=== PATIENT | female | born 1965 | race African-American/Black ===

== ENCOUNTER 2021-07-05 12:01 | Emergency (ER) | payer BC ==
--- NOTE | 2021-07-05 12:40 | RAD REPORT ---
EXAM DESCRIPTION: CT - CTHCSPWOC - 07/05/2021 12:15 pm CLINICAL HISTORY: Trauma, head and neck injury. Trauma, fall, laceration COMPARISON: No comparisons TECHNIQUE: Axial 5 mm thick images of the head were obtained. Axial 2 mm thick images of the cervical spine were obtained with sagittal and coronal reconstruction images generated and reviewed. All CT scans are performed using dose optimization technique as appropriate and may include automated exposure control or mA/KV adjustment according to patient size. FINDINGS: CT HEAD WITHOUT CONTRAST: No acute hemorrhage, hydrocephalus or extra-axial collection is identified.No areas of brain edema or midline shift. The paranasal sinuses and mastoids are clear.The calvarium is intact. Small right frontal scalp hemat eduard. Suspected nasal bone fracture. CT CERVICAL SPINE WITHOUT CONTRAST: No fracture or subluxation.No prevertebral soft tissues swelling is identified. IMPRESSION: No acute intracranial or cervical spine findings.
--- NOTE | 2021-07-05 12:47 | RAD REPORT ---
EXAM DESCRIPTION: CT - Facial Bones W/ Mpr - 07/05/2021 12:15 pm CLINICAL HISTORY: Facial injury status post fall. Facial pain COMPARISON: None TECHNIQUE: Computed axial tomography of the face was obtained. Coronal and sagittal reconstruction w as performed. All CT scans are performed using dose optimization technique as appropriate and may include automated exposure control or mA/KV adjustment according to patient size. FINDINGS: A comminuted depressed nasal bone fracture. Fractures involve the nasal septum. Anterior nasal septum displaced to the left. Soft tissue laceration right lateral supraorbital region. A TMJ dislocation is not noted. The globes are intact. Fluid within the sinuses is not seen. IMPRESSION: Comminuted nasal bone fracture Fractures involve the nasal septum
--- NOTE | 2021-07-05 12:51 | RAD REPORT ---
EXAM DESCRIPTION: RAD - Wrist Right 3 View - 07/05/2021 12:35 pm CLINICAL HISTORY: Right wrist pain status post injury FINDINGS: No fracture or dislocation is seen. If the patient continues to have symptoms to suggest a n occult fracture then a followup plain film series in 7 days would be recommended.
[2021-07-05] MEDS ORDERED: ONDANSETRON 4 MG (ODT) TAB ONE (13:39)
[2021-07-05] MEDS ORDERED: HYDROCODONE/APAP 7.5/325 MG TAB ONE (13:39)
[2021-07-05] MEDS ORDERED: DERMABOND SKIN ADHESIVE TOP ONE (14:17)
--- NOTE | 2021-07-05 14:57 | EDPHYS ---
Physician Documentation [facility] Name: Janet Castillo Age: 56 yrs Sex: Female : 1965 Arrival Date: 07/05/2021 Time: 12:01 Bed 7 Private MD: ED Physician Kevin Katz HPI: 07/05 12:14 This 56 yrs old Black Female presents to ER via Ambulatory with complaints of Fall jr8 Injury. 12:14 Onset: The symptoms/episode began/occurred acutely, today. Associated injuries: The jr8 patient sustained injury to the head, abrasion, laceration, pain, swelling, tenderness. Severity of symptoms: At their worst the symptoms were moderate, in the emergency department the symptoms are unchanged. The patient has not experienced similar symptoms in the past. The patient has not recently seen a physician. 12:14 Patient stated that she tripped while on the stairs falling down 12 stairs. Denies loss jr8 of consciousness. Has abrasions with multiple lacerations to the face along with swelling. Complains of wrist pain as well from trying to brace herself. Denies any other injury at this time.. Historical: - Allergies: 12:09 PENICILLINS; iw - Home Meds: 12:08 None [Active]; vinson - PMHx: 12:09 Hypothyroidism; iw - PSHx: 12:08 None; vinson - Immunization history:: Adult Immunizations up to date, Last tetanus immunization: up to date. - Social history:: Smoking status: Patient denies any tobacco usage or history of. ROS: 12:14 Eyes: Negative for injury, pain, redness, and discharge, Neck: Negative for injury, jr8 pain, and swelling, Cardiovascular: Negative for chest pain, palpitations, and edema, Respiratory: Negative for shortness of breath, cough, wheezing, and pleuritic chest pain, Abdomen/GI: Negative for abdominal pain, vomiting, diarrhea, and constipation. Positive for nausea Back: Negative for injury and pain, Neuro: Negative for weakness, numbness, tingling, and seizure. Positive for headache 12:14 ENT: Positive for injury or acute deformity, contusion. 12:14 MS/extremity: Positive for pain, tenderness, of the right wrist. 12:14 Skin: Positive for abrasion(s), laceration(s), of the face. Exam: 13:40 Eyes: Pupils equal round and reactive to light, extra-ocular motions intact. Lids and jr8 lashes normal. Conjunctiva and sclera are non-icteric and not injected. Cornea within normal limits. Periorbital areas with no swelling, redness, or edema. Neck: Trachea midline, no thyromegaly or masses palpated, and no cervical lymphadenopathy. Supple, full range of motion without nuchal rigidity, or vertebral point tenderness. No Meningismus. Chest/axilla: Normal chest wall appearance and motion. Nontender with no deformity. No lesions are appreciated. Cardiovascular: Regular rate and rhythm with a normal S1 and S2. No gallops, murmurs, or rubs. Normal PMI, no JVD. No pulse deficits. Respiratory: Lungs have equal breath sounds bilaterally, clear to auscultation and percussion. No rales, rhonchi or wheezes noted. No increased work of breathing, no retractions or nasal flaring. Abdomen/GI: Soft, non-tender, with normal bowel sounds. No distension or tympany. No guarding or rebound. No evidence of tenderness throughout. Back: No spinal tenderness. No costovertebral tenderness. Full range of motion. Neuro: Awake and alert, GCS 15, oriented to person, place, time, and situation. Cranial nerves II-XII grossly intact. Motor strength 5/5 in all extremities. Sensory grossly intact. 13:40 Skin: Warm, dry with normal turgor. Normal color with no rashes, no lesions, and no evidence of cellulitis. 13:40 Head/face: Noted is a laceration(s), that is deep, that is linear, of the mid forehead and right forehead. 13:40 ENT: Nose: External nose: abrasion is noted, laceration is present, Nasal septum: deviates to the left, Nasal mucosa: normal, Turbinates: are normal, Mouth: Lips: moist, lacerated, approximately 2.5 cm(s), frenulum and philtrum, Oral mucosa: moist, Posterior pharynx: Airway: patent, Tonsils: are normal in appearance, Uvula: midline, swelling, is not appreciated, erythema, is not appreciated. 13:40 Musculoskeletal/extremity: Extremities: grossly normal except: noted in the right wrist: pain, tenderness, ROM: intact in all extremities, full active range of motion, full passive range of motion, Circulation is intact in all extremities. Sensation intact. Vital Signs: 12:04 BP 107 / 80; Pulse 101; Resp 19; Temp 98.3; Pulse Ox 100% ; Weight 104.33 kg; Height 5 vinson ft. 8 in. (172.72 cm); 12:04 Body Mass Index 34.97 (104.33 kg, 172.72 cm) vinson [place] Coma Score: 12:10 Eye Response: spontaneous(4). Verbal Response: oriented(5). Motor Response: obeys vinson commands(6). Total: 15. Trauma Score (Adult): 12:10 Eye Response: spontaneous(1); Verbal Response: oriented(1); Motor Response: obeys vinson commands(2); Systolic BP: > 89 mm Hg(4); Respiratory Rate: 10 to 29 per min(4); Wang Score: 15; Trauma Score: 12 Laceration: 14:48 Wound Repair of 3cm ( 1.2in ) subcutaneous laceration to right forehead. Linear jr8 shaped.. Distal neuro/vascular/tendon intact. Anesthesia: Local anesthetic administered with 2 mls of 1% lidocaine. Wound prep: Moderate cleansing with hibiclenz, Wound irrigation with saline, Wound explored extensively. Skin closed with 3 5-0 Prolene using interrupted sutures and sterile technique. Patient tolerated well. 14:48 Wound Repair of 4cm ( 1.6in ) subcutaneous laceration to middle forehead. Linear jr8 shaped.. Distal neuro/vascular/tendon intact. Anesthesia: Local anesthetic administered with 3 mls of 1% lidocaine. Wound prep: Extensive cleansing with hibiclenz, Wound irrigation with saline, Wound explored extensively. Skin closed with 4 5-0 Prolene using interrupted sutures and sterile technique. Patient tolerated well. 14:48 Wound Repair of 1.5cm ( 0.6in ) muscle penetrating laceration to philtrum. Irregularly jr8 shaped.. Distal neuro/vascular/tendon intact. Anesthesia: Local anesthetic administered with 2 mls of 1% lidocaine. Wound prep: Moderate cleansing with hibiclenz, Wound irrigation with saline, Wound explored extensively. Skin closed with 2 5-0 Prolene using interrupted sutures and sterile technique. Patient tolerated well. 14:48 Wound Repair of 2.5cm ( 1.0in ) muscle penetrating laceration to frenulum and upper jr8 inner lip. Irregularly shaped.. Distal neuro/vascular/tendon intact. Anesthesia: Local anesthetic administered with 2 mls of 1% lidocaine. Wound prep: Wound irrigation with saline, Wound explored extensively. muscle layer closed with 1 5-0 chromic using interrupted sutures and sterile technique. Mucosal layer closed with 3 5-0 5-0 chromic using interrupted sutures and sterile technique. Patient tolerated well. MDM: 12:03 Patient medically screened. 8 14:48 Data reviewed: vital signs, nurses notes, radiologic studies, CT scan, plain films. jr8 Data interpreted: Pulse oximetry: on room air is 100 %. Interpretation: normal. Counseling: I had a detailed discussion with the patient and/or guardian regarding: the historical points, exam findings, and any diagnostic results supporting the discharge/admit diagnosis, radiology results, the need for outpatient follow up, an ENT specialist, to return to the emergency department if symptoms worsen or persist or if there are any questions or concerns that arise at home. ED course: Discussed with patient that she has concussion. Will need to take it easy for next several days. To f/u with PCP. Needs to come back to ED for suture removal and revaluation in 5-7 days. ENT called and made appointment for her next week so she has f/u for comminuted nasal fracture. Will be on Abx as well. If at any point in time she worsens to come back to ED. Family and patient understands plan and is good with everything . 07/05 12:04 Order name: CT Head C Spine; Complete Time: 13: [facility] 07/05 12:04 Order name: CT Facial Bones W/O Con; Complete Time: 13: [facility] 07/05 12:21 Order name: Wrist Right 3 View; Complete Time: 13: [facility] 07/05 12:05 Order name: Dressing - Wound; Complete Time: : [facility] 07/05 12:05 Order name: Gloves, Sterile; Complete Time: : 8 07/05 12:05 Order name: Prolene, Sutures; Complete Time: : [facility] 07/05 12:05 Order name: Setup Suture Tray; Complete Time: : [facility] Administered Medications: 13:40 Drug: [place] (HYDROcodone-acetaminophen) (7.5 mg-325 mg) 1 tabs Route: PO; vinson 13:40 Follow up: Response: No adverse reaction vinson 13:40 Drug: Ondansetron 4 mg Route: PO; [facility] 13:40 Follow up: Response: No adverse reaction 13:52 Drug: Lidocaine (1 %) 1 vials Volume: 20 ml; Route: Infiltration; vinson Disposition Summary: 07/05/21 14:57 Discharge Ordered Location: Home jr8 Problem: new jr8 Symptoms: have improved jr8 Condition: Stable jr8 Diagnosis - Laceration without foreign body of lip jr8 - Laceration without foreign body of scalp jr8 - Fracture of nasal bones jr8 - Abrasion Face jr8 - Contusion of right hand jr8 - Concussion without loss of consciousness jr8 Followup: jr8 - With: Terrie Cabrera MD - When: 1 week - Reason: Recheck today's complaints, Continuance of care, Re-evaluation by your physician Discharge Instructions: - Discharge Summary Sheet jr8 - Concussion, Adult jr8 - Laceration Care, Adult jr8 - Nasal Fracture jr8 - Sutures, [place], or Adhesive Wound Closure jr8 Forms: - Medication Reconciliation Form jr8 - Thank You Letter jr8 - Antibiotic Education jr8 - Prescription Opioid Use jr8 - Work release form 3 - Family Work Release 3 Prescriptions: - Clindamycin HCl 300 mg Oral Capsule - take 1 capsule by ORAL route every 6 hours for 7 days; 28 capsule; Refills: 0, jr8 Product Selection Permitted - Ibuprofen 800 mg Oral Tablet - take 1 tablet by ORAL route every 12 hours As needed take with food; 20 tablet; jr8 Refills: 0, Product Selection Permitted - Zofran 4 mg Oral Tablet - take 1 tablet by ORAL route every 12 hours As needed; 20 tablet; Refills: 0, jr8 Product Selection Permitted - Tylenol-Codeine #3 300 mg-30 mg Oral - take 2 tablet by ORAL route every 8 hours As needed; 24 tablet; Refills: 0, jr8 Product Selection Permitted Signatures: Dispatcher [employer] Renee Ortiz RN RN iw Roszak, Josh, PA PA jr8 Rachelle Mendez RN RN [facility] Deborah Panchal RN RN Corrections: (The following items were deleted from the chart) 12:09 12:08 Allergies: No Known Allergies; [facility] 12:10 12:08 PMHx: None; [facility] 14:48 12:14 Eyes: Negative for injury, pain, redness, and discharge, Neck: Negative for jr8 injury, pain, and swelling, Cardiovascular: Negative for chest pain, palpitations, and edema, Respiratory: Negative for shortness of breath, cough, wheezing, and pleuritic chest pain, Abdomen/GI: Negative for abdominal pain, nausea, vomiting, diarrhea, and constipation, Back: Negative for injury and pain, Neuro: Negative for headache, weakness, numbness, tingling, and seizure, jr8
--- NOTE | 2021-07-05 14:57 | ER ---
Nurse's Notes [facility] Name: Janet Castillo Age: 56 yrs Sex: Female : 1965 Arrival Date: 07/05/2021 Time: 12:01 Bed 7 Private MD: Diagnosis: Laceration without foreign body of lip;Laceration without foreign body of scalp;Fracture of nasal bones;Abrasion Face;Contusion of right hand;Concussion without loss of consciousness Presentation: 07/05 12:02 Chief complaint:. jh6 12:04 Chief complaint: Patient states: pt fell down 12 stairs , laceration to forehead, nose iw bleeding, mouth bleeding, denies LOC. 12:04 Acuity: LEENA 2 iw 12:04 Chief complaint: Patient states: pt tripped and fell going up the stairs. pt has vinson notable lac on right side forehead, midline top of forehead, upper lip lac, abrasion to nose and chin. pt reported right wrist pain from bracing self from the fall. pt denies LOC and no blood thinners. Coronavirus screen: Vaccine status: Patient reports receiving the 2nd dose of the covid vaccine. Ebola Screen: Patient denies travel to an Ebola-affected area in the 21 days before illness onset. Initial Sepsis Screen: Does the patient meet any 2 criteria? No. Patient's initial sepsis screen is negative. Does the patient have a suspected source of infection? No. Patient's initial sepsis screen is negative. Risk Assessment: Do you want to hurt yourself or someone else? Patient reports no desire to harm self or others. Onset of symptoms was July 05, 2021. 12:04 Method Of Arrival: Ambulatory vinson 12:04 Acuity: LEENA 3 vinson 12:05 Care prior to arrival: None. Mechanism of Injury: Fall down 12 steps. Trauma event iw details: Injury occurred in the [facility]. 12:05 Method Of Arrival: Wheelchair iw Triage Assessment: 12:08 General: Appears uncomfortable, Behavior is anxious. Pain: Complains of pain in face, vinson right hand and right wrist. Derm: Reports pain that is 8 out of 10 on a pain scale. Injury Description: Laceration sustained to right side forehead, midline forehead, and upper lip. Trauma Activation: Alert Physician: ED Physician; Name: ; Notified At: ; Arrived At: Physician: General Surgeon; Name: ; Notified At: ; Arrived At: Physician: Radiology; Name: ; Notified At: ; Arrived At: Physician: Respiratory; Name: ; Notified At: ; Arrived At: Physician: Lab; Name: ; Notified At: ; Arrived At: Historical: - Allergies: 12:09 PENICILLINS; iw - Home Meds: 12:08 None [Active]; vinson - PMHx: 12:09 Hypothyroidism; iw - PSHx: 12:08 None; vinson - Immunization history:: Adult Immunizations up to date, Last tetanus immunization: up to date. - Social history:: Smoking status: Patient denies any tobacco usage or history of. Screenin:09 Abuse screen: Denies threats or abuse. Denies injuries from another. Nutritional vinson screening: No deficits noted. Tuberculosis screening: No symptoms or risk factors identified. Fall Risk None identified. Primary Survey: 12:10 Uncontrolled hemorrhage is observed, assessment has been re-ordered to <C> ABC. A: The vinson client is awake and alert. The airway is patent. Breathing/Chest: Spontaneous respiratory effort, equal unlabored respirations, breath sounds clear bilaterally, regular pattern, symmetrical chest rise and fall. Circulation: No external hemorrhage present. Regular and strong central pulse, skin warm/dry/normal color. Disability Client is alert. Exposure/Environment: There is evidence of uncontrolled external hemorrhage. Provider notified immediately. Methods to control bleeding applied. A warming method has been applied: A warm blanket has been provided to the patient. 12:11 Reassessment Alertness and Airway: Awake and alert. The airway is patent. Airway Patent vinson Breathing: Circulation: No external hemorrhage noted. Regular and strong central pulse, skin warm/dry/normal color. Disability: Pupils Alert. Assessment: 13:07 General: Appears uncomfortable, Behavior is calm, cooperative. Pain: Complains of pain vinson in face. Injury Description: Laceration sustained to right forehead, midline forehead and upped lip. 14:46 Derm: Wound noted. vinson Vital Signs: 12:04 BP 107 / 80; Pulse 101; Resp 19; Temp 98.3; Pulse Ox 100% ; Weight 104.33 kg; Height 5 vinson ft. 8 in. (172.72 cm); 12:04 Body Mass Index 34.97 (104.33 kg, 172.72 cm) vinson [place] Coma Score: 12:10 Eye Response: spontaneous(4). Verbal Response: oriented(5). Motor Response: obeys vinson commands(6). Total: 15. Trauma Score (Adult): 12:10 Eye Response: spontaneous(1); Verbal Response: oriented(1); Motor Response: obeys vinson commands(2); Systolic BP: > 89 mm Hg(4); Respiratory Rate: 10 to 29 per min(4); [place] Score: 15; Trauma Score: 12 ED Course: 12:01 Patient arrived in ED. iw 12:02 Rachelle Mendez, JADON is Primary Nurse. jh6 12:03 Naman Sewell PA is PHCP. jr8 12:03 Kevin Katz MD is Attending Physician. jr8 12:05 Triage completed. iw 12:08 Arm band placed on. vinson 12:09 Patient has correct armband on for positive identification. Bed in low position. vinson 12:09 Assist provider with laceration repair. vinson 12:10 Patient maintains SpO2 saturation greater than 95% on room air. vinson 12:12 Thermoregulation: warm blanket given to patient. vinson 12:17 CT Head C Spine In Process Unspecified. EDMS 12:17 CT Facial Bones W/O Con In Process Unspecified. EDMS 12:37 Wrist Right 3 View In Process Unspecified. EDMS 14:55 Terrie Cabrera MD is Referral Physician. jr8 15:40 Patient did not have IV access during this emergency room visit. vinson Administered Medications: 13:40 Drug: [place] (HYDROcodone-acetaminophen) (7.5 mg-325 mg) 1 tabs Route: PO; vinson 13:40 Follow up: Response: No adverse reaction vinson 13:40 Drug: Ondansetron 4 mg Route: PO; 6 13:40 Follow up: Response: No adverse reaction vinson 13:52 Drug: Lidocaine (1 %) 1 vials Volume: 20 ml; Route: Infiltration; Medication: 12:12 VIS not applicable for this client. vinson Intake: 12:10 PO: 0ml; Total: 0ml. vinson Outcome: 14:57 Discharge ordered by . jr8 15:39 Discharged to home ambulatory, with family. vinson 15:39 Condition: good 15:39 Discharge instructions given to patient, Prescriptions given X 4. 15:40 Patient left the ED. vinson Signatures: Dispatcher [employer] Renee Ortiz RN RN iw Naman Sewell PA PA jr8 Rachelle Mendez RN RN jh6 Deborah Panchal RN RN ha Corrections: (The following items were deleted from the chart) : 12:08 Allergies: No Known Allergies; vinson iw 12: 12:08 PMHx: None; vinson iw
[2021-07-05 15:45] VITALS: BP 107/80; TEMP 98.3; O2SAT 100
== END 2021-07-05 15:40 | disposition home or self-care (01) ==
LOC: ER 12:01
PROC: 0JQ10ZZ Repair Face Subcutaneous Tissue and Fascia, Open Approach (ICD-10-PCS; principal; 2021-07-05)
PROC: 0CQ0XZZ Repair Upper Lip, External Approach (ICD-10-PCS; 2021-07-05)
DX: S02.2XXA Fracture of nasal bones, initial encounter for closed fracture (principal); S06.0X0A Concussion without loss of consciousness, initial encounter; S01.01XA Laceration without foreign body of scalp, initial encounter; S01.511A Laceration without foreign body of lip, initial encounter; S60.221A Contusion of right hand, initial encounter; W10.9XXA Fall (on) (from) unspecified stairs and steps, initial encounter; E03.9 Hypothyroidism, unspecified; Z88.0 Allergy status to penicillin
CPT/HCPCS: 70450; 70486; 72125; 76377; 99284